=== PATIENT | female | born 1945 | race American Indian/Alaskan Native ===

== ENCOUNTER 2022-05-26 16:13 | Emergency (ER) | payer MEDICARE ==
[~2022-05-26] VITALS: Ht 157.5 cm; Wt 79.5 kg
[~2022-05-26 16:13] MED LIST: ACET-3068 PO; BECL8.7A7 IH; CETI-108 PO; GLYB5TAB7 PO; LISI-639 PO; METF1000 PO; ONDA4TAB6 PO; SIMV-45 PO
[2022-05-26 16:38] VITALS: BP 115/79
[2022-05-26] MEDS ORDERED: HYDROcodone/acetaminophen 5mg/325mg tablet PO ONE ×2 (18:10→20:00)
[2022-05-26] MEDS ORDERED: LIDOCAINE 2%/EPI 1:100,000 inj. Multi-dose 20 ML VIAL IJ ONE (18:14)
[2022-05-26] MEDS ORDERED: HYDR-3965 PO (19:45)
== END 2022-05-26 20:15 | disposition home or self-care (01) ==
LOC: ER 16:14
DX: S52.502A Unspecified fracture of the lower end of left radius, initial encounter for closed fracture (principal); I10 Essential (primary) hypertension; E78.00 Pure hypercholesterolemia, unspecified; E11.9 Type 2 diabetes mellitus without complications; J45.909 Unspecified asthma, uncomplicated; Z88.5 Allergy status to narcotic agent; W19.XXXA Unspecified fall, initial encounter; Y93.89 Activity, other specified; Y92.89 Other specified places as the place of occurrence of the external cause; Y99.8 Other external cause status
CPT/HCPCS: 25605; 29125; 73110; 99284; A4565; A6449